=== PATIENT | male | born 2000 | race African-American/Black ===

== ENCOUNTER 2025-02-25 11:46 | Emergency (ER) | payer OTHER, BC, SELFPAY ==
[2025-02-25 11:50] VITALS: BP 133/82; PULSE 91; TEMP 36.7; O2SAT 97; BMI 24.4
--- NOTE | 2025-02-25 11:57 | XR_ITS ---
The [address] [address] Patient Name: KAASH GUNTER MRN: [id number] date: 2000 Sex: M Assigned Patient Location: ED.MAIN Current Patient Location: ED.MAIN Accession/Order Number: [id number] Exam Date: 02/25/2025 12:20 Report Date: 02/25/2025 12:28 At the request of: ALYSSA BAH MD Procedure: XR lumbar spine 2-3V LUMBAR SPINE - 2 views: CLINICAL HISTORY: Patient lifted a box yesterday and felt a pop. Low back pain since. COMPARISON: None Standing AP and lateral views were obtained. There is thoracolumbar levoscoliotic curvature. There is straightening of the normal lumbar lordosis on the lateral view. There is no acute compression fracture. No significant displacement is seen on the lateral view. No disproportionate disc space narrowing is identified. There is no prominent hypertrophy. The sacroiliac joints are maintained and show minimal sclerosis. There are no paraspinal soft tissue abnormalities. XR/XR lumbar spine 2-3V IMPRESSION: LOSS OF NORMAL LUMBAR CURVATURE. NO ACUTE BONY FINDINGS. Impression dictated by: Jannet Hoyt M.D. 02/25/2025 12:28 PM Dictation Location: [facility] Electronically authenticated by: [id number] Y Date: 02/25/2025 12:28
--- NOTE | 2025-02-25 11:58 | ED.GENADUL1 ---
HPI HPI - General Adult General Chief complaint: Back Pain/Injury Stated complaint: BACK PAIN Time Seen by Provider: 02/25/25 11:47 History of Present Illness HPI narrative: 25-year-old male presents for lower back pain. He was lifting a heavy item at work yesterday when this happened. He felt a popping sensation in his midline lower back, he did not fall. No history of back problems. They continued today so he came in to get checked. The pain is moderate. Related Data Previous Rx's ?Medication ?Instructions ?Recorded ibuprofen 800 mg tablet 800 mg PO Q8H PRN pain #20 tabs 02/25/25 methocarbamol 750 mg tablet 750 mg PO Q6H PRN pain #20 tabs 02/25/25 Allergies Allergy/AdvReac Type Severity Reaction Status Date / Time No Known Drug Allergies Allergy Verified 02/25/25 11:49 Opioid HPI Opioid Management Most Recent Opioid Data: Last Pain Scale 9 Today, 11:50 Review of Systems ROS Narrative A ten point review of systems is negative except as noted above. PFSH PFSH Social History Little interest or pleasure in doing things: not at all Feeling down, depressed, or hopeless: not at all Exam Narrative Exam Narrative: Nurses note and vital signs reviewed and patient is not hypoxic. General: The patient appears well and in no apparent distress. Patient is resting on cart. Skin: Warm, dry, no pallor noted. There is no rash noted. Head: Normocephalic, atraumatic Eye: Normal conjunctiva, no drainage Ears, Nose, Mouth, and Throat: oral mucosa is moist. Nares patent. Cardiovascular: Regular Rate and Rhythm Respiratory: Patient is in no distress, no accessory muscle use, lungs are clear to auscultation, no wheezing, rales or rhonchi Back: No tenderness of the cervical or thoracic spines. He has some mild tenderness to palpation of the midline lower back. No bruising or abrasions present. Motor strength intact in his lower extremities GI: Soft and nontender Musculoskeletal: The patient has no evidence of calf tenderness, no pitting edema, symmetrical pulses noted bilaterally Neurological: A&O, normal speech Psychiatric: Cooperative Constitutional Vital Signs, click to edit/add: Last Vital Signs Temp 98.1 F 02/25/25 11:50 Pulse 91 H 02/25/25 11:50 Resp 16 02/25/25 11:50 BP 133/82 02/25/25 11:50 Pulse Ox 97 02/25/25 11:50 O2 Del Method Room Air 02/25/25 11:50 Course Vital Signs Vital signs: Vital Signs Temperature 98.1 F 02/25/25 11:50 Pulse Rate 91 H 02/25/25 11:50 Respiratory Rate 16 02/25/25 11:50 Blood Pressure 133/82 02/25/25 11:50 Pulse Oximetry 97 02/25/25 11:50 Oxygen Delivery Method Room Air 02/25/25 11:50 Temperature 98.1 F 02/25/25 11:50 Pulse Rate 91 H 02/25/25 11:50 Respiratory Rate 16 02/25/25 11:50 Blood Pressure 133/82 02/25/25 11:50 Pulse Oximetry 97 02/25/25 11:50 Oxygen Delivery Method Room Air 02/25/25 11:50 Medical Decision Making MDM Narrative Medical decision making narrative: X-rays per radiologist showed no acute findings and he was given IM Toradol here and prescribed Robaxin and ibuprofen. Treatment diagnosis and follow-up were discussed with the patient. Differential Diagnosis Differential Diagnosis: Lumbar strain, compression fracture, degenerative disc disease Imaging Data Lumbar x-ray: Radiologist's impression: ITS Impressions Lumbar Spine X-Ray 02/25/25 11:57 IMPRESSION: LOSS OF NORMAL LUMBAR CURVATURE. NO ACUTE BONY FINDINGS. Impression dictated by: Jannet Hoyt M.D. 02/25/2025 12:28 PM Dictation Location: [place] [address] Electronically authenticated by: [id number] Y Date: 02/25/2025 12:28 Discharge Plan Discharge Chief Complaint: Back Pain/Injury Clinical Impression: Lumbar strain Patient Disposition: Home, Self-Care Time of Disposition Decision: 12:36 Condition: Good Mode of Transportation: Private Vehicle Prescriptions / Home Meds: New ibuprofen 800 mg tablet 800 mg PO Q8H PRN (Reason: pain) Qty: 20 0RF methocarbamol 750 mg tablet 750 mg PO Q6H PRN (Reason: pain) Qty: 20 0RF Print Language: Frisian Instructions: Low Back Strain (ED) Referrals: Physician,Non-Staff, MD [Primary Care Provider] - 1 week
--- OUTSIDE RECORDS SUMMARY | 2025-02-25 12:00 | XMS_ITS | Encounter Summary ---
Author Organization [facility] Address [id number] [address] [place] [address] Care Team Providers Care Girls Tennis Coach Name Role Phone Unavailable Primary Care Provider Unavailabl e Encounter Details Date Type Department Care Team (Late st Contact Info) Description 06/11/2022 Documentation [facility] [address] [place] [id number] Sandra Chau RN Social History Tobacco Use Types Packs/Day Years Used Date Smoking Tobacco: Never Smokeless Tobacco: Never Alcohol Use Standard Drinks/Week Comments Yes 0 (1 standard drink = 0.6 oz pur e alcohol) socially Childcare Answer Date Recorded Childcare Unknown 12/29/2018 Employment Answer Date Recorded Employment Unknown 12/29/2018 Sex and Gender Information Value Date Recorded Sex Assigned at Not on file Legal Sex Male 5:48 PM EDT Gender Identity Not on file Sexual Orientation Not on file COVID-19 Exposure Response Date Recorded In the last month, have you been in contact with someone who was confirmed or suspected to have Coronavirus / COVID-19? No / Unsure 05/23/2022 2:19 PM EDT documented as of this encounter Plan of Treatment Not on file documented as of this encounter Goals Goal Patient Goal Type Associated Problems Recent Progress Patient-Stated? Author Return home General Yes Neda Pride LSW Note: Evaluation of progress towards goal: Patient to return home with family support documented as of this encounter Visit Diagnoses Not on filedocumented in this encounter
--- OUTSIDE RECORDS SUMMARY | 2025-02-25 12:00 | XMS_ITS | Encounter Summary ---
Author Organization [facility] Address [id number] [address] [place] [address] Care Team Providers Care Officer Lieutenant Name Role Phone Unavailable Primary Care Provider Unavailabl e Reason for Visit * Reason Onset Date Comments Med Refill 05/27/2022 Encounter Details Date Type Department Care Team (Late st Contact Info) Description 05/27/2022 Refill [facility] [address] [place] [phone] Jaciel Roland, SOCIOLOGY FACULTY MEMBER-[employer] CENTER ASSOCIATE [address] [place] [address] Social History Tobacco Use Types Packs/Day Years [...]
[2025-02-25] MEDS: KETOROLAC TROMETHAMINE 60 MG/2 ML VIAL IM (12:41)
== END 2025-02-25 12:58 | disposition home or self-care (01) ==
PROVIDERS: Emergency Provider Emergency Medicine
DX: S39.012A Strain of muscle, fascia and tendon of lower back, initial encounter (principal); X50.0XXA Overexertion from strenuous movement or load, initial encounter
CPT/HCPCS: 72100; 96372; 99284; J1885